=== PATIENT | male | born 1965 | race Caucasian/White ===

== ENCOUNTER 2023-10-01 10:03 | Outpatient (CLI) | payer OTHER, SELFPAY | END 2023-10-01 10:04 | disposition home or self-care (01) | LOC: NFLDREF 10-03 06:06 | PROVIDERS: Visit Provider Nurse Practitioner Family | DX: R05.9 Cough, unspecified (principal); R07.9 Chest pain, unspecified; E86.0 Dehydration; J22 Unspecified acute lower respiratory infection | CPT/HCPCS: 84484 ==

== ENCOUNTER 2025-04-04 08:54 | Outpatient (CLI) | payer OTHER, SELFPAY ==
--- NOTE | 2025-04-04 09:15 | CRLHL7_ITS ---
For Patients: As a result of the Century Cures Act, medical imaging exams and procedure reports are released immediately into your electronic medical record. You may view this report before your referring provider. If you have questions, please contact your health care provider. CLINICAL HISTORY: Renal calculus COMPARISON: none TECHNIQUE: Jimenez scale and color Doppler images were acquired of the kidneys and urinary bladder. FINDINGS: Left hydronephrosis is present. The right kidney measures 13.0cm in length and the left kidney measures 14.8cm in length. The renal cortex appears of normal thickness. The urinary bladder appears normal. Color Doppler images reveal a normal appearance of both ureteral jets. There is no evidence of bladder calculi or diverticula. Bladder volume 73 cc prevoid and 56 cc postvoid. IMPRESSION: Left hydronephrosis. Dictated by Gregg Tate MD @ 04/04/2025 1:08:37 PM (Electronically Signed)
== END 2025-04-04 08:55 | disposition home or self-care (01) ==
PROVIDERS: PCP Family Medicine; Visit Provider Urology
DX: N20.0 Calculus of kidney (principal); N13.30 Unspecified hydronephrosis
CPT/HCPCS: 76770

== ENCOUNTER 2025-04-12 13:32 | Outpatient (CLI) | payer OTHER, SELFPAY ==
--- NOTE | 2025-04-12 14:00 | CRLHL7_ITS ---
For Patients: As a result of the Century Cures Act, medical imaging exams and procedure reports are released immediately into your electronic medical record. You may view this report before your referring provider. If you have questions, please contact your health care provider. INDICATION: Left hydronephrosis. TECHNIQUE: CT abdomen and pelvis without contrast. COMPARISON: Renal and bladder ultrasound dated 04/04/2025. FINDINGS: Lower chest: Scattered subsegmental atelectasis. 0.5 cm perifissural pulmonary nodule in the right middle lobe. No focal consolidation. Evaluation of solid organs is limited secondary to lack of IV contrast administration. Liver: 2.0 cm cyst in segment 4. Additional too small to characterize hypodense hepatic lesions are noted, likely benign in the absence of a known malignancy. Gallbladder and bile ducts: No calcified gallstones. No significant biliary duct dilation. Pancreas: Unremarkable. Spleen: Unremarkable. Adrenal glands: Unremarkable. Kidneys: No renal calculi identified bilaterally. Normal caliber left ureter. Probable multiple large left parapelvic cysts. Left hydronephrosis secondary to UPJ obstruction is felt to be less likely, as the left renal cortex is largely preserved. Retroperitoneum: No lymphadenopathy. Bowel and mesentery: Bowel is not obstructed. No significant ascites, no pneumoperitoneum. Scattered colonic diverticulosis, without evidence of acute diverticulitis. Bladder: Unremarkable for degree of distention. Reproductive organs: No significant prostatomegaly. Pelvic lymph nodes: No lymphadenopathy. Vessels: Atherosclerotic calcifications. Abdominal wall: No acute abdominal wall abnormality. Bones: Multilevel degenerative changes of the spine. No suspicious/aggressive focal osseous lesion. IMPRESSION: 1. Appearance of the left kidney is favored to reflect presence of multiple large left parapelvic cysts. Left hydronephrosis secondary to chronic UPJ obstruction is felt to be less likely, as the left renal cortex is largely preserved. A CT urogram would be able to differentiate between these 2 entities definitively. 2. Additional incidental findings as above. Please note that all CT scans at this facility use dose modulation, iterative reconstruction, and/or weight-based dosing when appropriate to reduce radiation dose to as low as reasonably achievable. Dictated by Arianna Yi MD @ 04/14/2025 4:27:14 PM (Electronically Signed)
== END 2025-04-12 13:33 | disposition home or self-care (01) ==
LOC: CT 13:33
PROVIDERS: PCP Family Medicine; Visit Provider Urology
DX: N13.30 Unspecified hydronephrosis (principal); N28.1 Cyst of kidney, acquired
CPT/HCPCS: 74176